=== PATIENT | female | born 1950 | race Caucasian/White ===

== ENCOUNTER → 2016-06-12 | Outpatient (CLI) | payer MEDICARE ==
[~2016-06-12] MED LIST: ADV250INH INH; ALB2.5NEB NEB; AMLO5TAB2 PO; ASPI1TAB PO; ASPI32ECTA PO; CIPR-303 PO; COLA100C PO; DITR5TAB PO; DRIS50002 PO; Duoneb NEB; EXTR500C4 PO; IPRASOL4 INH; ISOVUE-370 76% 100ML VIAL (Q9967) As Ordered ONE; LEVA500T PO; MAXZTA PO; NAPR500T2 PO; PERCOCET PO; POTA75TA PO; PRED10PA2 PO; PROA1AER INH; SIMV20TA2; TRIA37.53 PO; TYLE325T5 PO; ULTR50TA PO; ZITHTAB PO
--- NOTE | 2016-06-12 13:29 | REP ---
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 Comparison is the most recent prior study of 10/04/2015. Scanning is initially performed from the diaphragms to the pubic symphysis without IV contrast. This is followed by biphasic scanning after IV contrast, initially during the portal venous phase of enhancement and later during the delayed equilibrium phase of enhancement from the diaphragms to the pubic symphysis. There is no bowel contrast contrast on any phase of the study. The visualized lung martinez are unremarkable and unchanged. The hepatic parenchyma, pancreas and spleen are homogeneous and unremarkable on all phases of the study and unchanged. The adrenals are unremarkable. The left kidney is unremarkable. The right kidney is surgically absent. There is no mass or adenopathy in the right renal fossa. The abdominal aorta is unremarkable except for calcified atheroma. There is no periaortic adenopathy. There is no pelvic or abdominal adenopathy. Pelvis: The bladder, vaginal cuff and adnexa are unremarkable. There is no pelvic adenopathy or ascites. There is sigmoid colon diverticulosis without diverticulitis. This is unchanged. There is a fat-containing umbilical hernia, unchanged from the prior study. There is a right lateral abdominal wall incisional hernia containing large bowel loops and small bowel loops. This appears to have increased in size from the prior study. There is a midline longitudinal surgical scar anteriorly over the pelvis, not present previously. There is no bowel distension or obstruction.. Impression: The patient's known right lateral abdominal wall incisional hernia has increased in size and contains large bowel loops and small bowel loops. There is a fat-containing umbilical hernia, unchanged. There is a longitudinal surgical scar anteriorly over the midline of the pelvis, not present previously. There is no evidence of tumor recurrence, mass, adenopathy or ascites. There is sigmoid colon d diverticulosis without diverticulitis. Signed by Yonathan Snyder MD 06/12/2016 01:20 P
== END ==
LOC: M RAD 11:06
PROVIDERS: ATTEND Urology
DX: C66.1 Malignant neoplasm of right ureter (principal); K43.2 Incisional hernia without obstruction or gangrene; K57.30 Diverticulosis of large intestine without perforation or abscess without bleeding
CPT/HCPCS: 74178; Q9967

== ENCOUNTER → 2016-06-25 | Outpatient (REF) | payer MEDICARE, OTHER ==
[~2016-06-25] MED LIST changes: -ISOVUE-370 76% 100ML VIAL (Q9967) As Ordered ONE
== END | disposition home or self-care (01) ==
LOC: M SMT 13:26
PROVIDERS: ATTEND Urology
DX: C80.1 Malignant (primary) neoplasm, unspecified (principal)

== ENCOUNTER → 2016-10-15 | Outpatient (REF) | payer OTHER ==
[~2016-10-15] MED LIST changes: -COLA100C PO; +COLA100C3 PO
== END ==
LOC: M SMT 14:01
PROVIDERS: ATTEND Urology
DX: C80.1 Malignant (primary) neoplasm, unspecified (principal)

== ENCOUNTER → 2017-02-06 | Outpatient (CLI) | payer OTHER ==
[~2017-02-06] MED LIST changes: +ASPI325T24 PO; -ASPI32ECTA PO; -COLA100C3 PO; +COLA100C5 PO; +LEVA1TAB2 PO; -LEVA500T PO; -NAPR500T2 PO; +NAPR500T3 PO; -PROA1AER INH; +PROAAER10 INH; -ULTR50TA PO; +ULTR50TA8 PO
[2017-02-06 17:19] LABS: CALCIUM LEVEL 9.1 MG/DL (8.8-10.2); CREATININE FOR GFR 1.02 MG/DL (0.55-1.02); GLOMERULAR FILTRATION RATE 57.2 (>45); POTASSIUM SERUM 4.3 MEQ/L (3.5-5.1)
== END ==
LOC: M SMT 14:05
PROVIDERS: ATTEND Urology
DX: C80.1 Malignant (primary) neoplasm, unspecified (principal)

== ENCOUNTER → 2017-02-20 | Outpatient (CLI) | payer OTHER ==
[~2017-02-20] MED LIST changes: +ISOVUE-370 76% 100ML VIAL (Q9967) As Ordered ONE
--- NOTE | 2017-02-20 12:29 | REP ---
CT ABDOMEN PELVIS WITHOUT AND WITH IV CONTRAST: CT urogram. HISTORY: Urothelial carcinoma. Comparison CT study June 12, 2016. Comparison is also made with CT study from May 26, 2015. CT CONTRAST DOSE: 100 mL of Isovue [address] FINDINGS: The lung bases remain clear. The patient is status post right nephroureterectomy. Right flank abdominal wall hernia transmits unobstructed loops of large and small bowel unchanged from the 06/12/2016 prior study. A ventral hernia transmits abdominal fat as previously noted as well. The liver and spleen remain normal in size homogeneous in texture. A small accessory splenule is seen superiorly. The gallbladder is surgically absent. There is an air and fluid filled laterally projecting descending duodenal diverticulum again seen. No pancreatic lesion is observed. No adrenal mass is seen. There are clips in the nephrectomy bed. No recurrent mass lesion is observed. No adenopathy seen. Normal caliber aorta is noted. The left kidney enhances normally and is morphologically intact. Delayed images show no filling defect in the intrarenal collecting system on the left or mass effect in the left ureter. No bladder mass lesion is seen. There is a small hernia of the suprapubic right anterior abdominal wall containing the anterior edge of the bladder. This is unchanged. There is left colonic diverticulosis without CT evidence of diverticulitis. No evidence of pelvic adenopathy or mass lesion. The appendix is surgically absent. No bony destructive lesion is appreciated. IMPRESSION: Status post right nephro-ureterectomy. No evidence of recurrent mass or adenopathy. Right flank and anterior abdominal wall hernias as noted above unchanged. Vascular calcification left colonic diverticulosis and descending duodenal diverticulum are incidental findings. Signed by Santosh Masterson MD 02/20/2017 05:09 P
--- NOTE | 2017-02-20 12:47 | REP ---
WHOLE BODY RADIONUCLIDE BONE SCAN: HISTORY: Urothelial carcinoma. Status post right nephroureterectomy. TECHNIQUE: 21.7 mCi technetium 99m MDP is injected and standard whole body bone scan imaging is acquired. SCINTIGRAPHIC FINDINGS: The right kidney is surgically absent. There is slight soft tissue uptake in a known right flank postoperative hernia. Normal uptake is seen in the left kidney and in the urinary bladder. There is degenerative uptake in the knees and shoulders bilaterally. There is no evidence to suggest skeletal metastatic disease. Mild arthritic midfoot uptake is seen bilaterally. IMPRESSION: Mild degenerative arthritic uptake pattern. No evidence to suggest skeletal metastatic disease. Signed by Santosh Masterson MD 02/20/2017 05:09 P
== END ==
LOC: M RAD 08:26
PROVIDERS: ATTEND Urology
DX: C80.1 Malignant (primary) neoplasm, unspecified (principal); Z90.5 Acquired absence of kidney
CPT/HCPCS: 74178; 78306; A9503; Q9967

== ENCOUNTER → 2017-06-03 | Outpatient (REF) | payer OTHER | LOC: M SMT 16:41 | DX: C80.1 Malignant (primary) neoplasm, unspecified (principal) | CPT/HCPCS: 88108 ==

== ENCOUNTER → 2017-08-26 | Outpatient (REF) | payer OTHER | LOC: M SMT 12:42 | DX: C80.1 Malignant (primary) neoplasm, unspecified (principal) | CPT/HCPCS: 88108 ==

== ENCOUNTER → 2017-12-30 | Outpatient (REF) | payer OTHER, MEDICARE | LOC: M SMT 17:54 | DX: C80.1 Malignant (primary) neoplasm, unspecified (principal) | CPT/HCPCS: 88108 ==

== ENCOUNTER → 2018-06-01 | Outpatient (REF) | payer MEDICARE ==
[~2018-06-01] MED LIST changes: -AMLO5TAB2 PO; +AMLO5TAB6 PO; -ASPI325T24 PO; +ASPI325T25 PO; -DRIS50002 PO; +DRIS50003 PO; +IPRA0.00 INH; -IPRASOL4 INH; -ISOVUE-370 76% 100ML VIAL (Q9967) As Ordered ONE; +NAPR-885 PO; -NAPR500T3 PO
== END ==
LOC: M SMT 17:08
PROVIDERS: ATTEND Urology
DX: C80.1 Malignant (primary) neoplasm, unspecified (principal)

== ENCOUNTER → 2018-07-02 | Outpatient (CLI) | payer MEDICARE ==
[~2018-07-02] MED LIST changes: +ISOVUE-370 76% 100ML VIAL (Q9967) As Ordered ONE
--- NOTE | 2018-07-03 14:22 | REP ---
Clinical: History of prior right nephrectomy for urinary tract neoplasm. Technique: Axial precontrast, contrast enhanced, and delayed images of the abdomen and pelvis using oral (per protocol) and 100 ml Isovue 370 intravenous contrast material with coronal and sagittal re-formations. Automated dose reduction technique as well as modifications based on patient's size used during image acquisition. Comparison: 02/20/2017. Findings: Lung bases are clear. Visualized heart and pericardium are normal. Liver, spleen, pancreas, bilateral adrenal glands and left kidney/ureter are normal in all phases of enhancement. Evidence of prior cholecystectomy. There is a stable 3.5 cm duodenal hernia along the descending portion of the duodenum lateral to the pancreatic head. The patient is noted to be status post right nephrectomy without evidence for metastatic lesion or recurrence in the right renal fossa. A large postsurgical right lateral ventral hernia is unchanged and contains nonobstructed loops of small and large bowel. There is no evidence for bowel obstruction. Colonic and predominantly sigmoid diverticulosis noted without acute diverticulitis. Pelvis demonstrates stable appearance to the bladder including small right anterior bladder herniation through the inferior margin of the right rectus sheath just above the level of the pubic symphysis. The patient is noted to be status post hysterectomy. No ascites. No intraperitoneal or retroperitoneal adenopathy. No solitary mass lesion or evidence for recurrence/metastatic disease. No free air. Fat containing midline ventral hernia at the level of the pelvis with a defect through the rectus sheath of approximately 16 mm. Atherosclerotic changes of the aorta and vasculature noted without aneurysm or dissection. Osseous structures demonstrate age-related changes without focal osseous abnormality. Impression: 1. No evidence for recurrence or metastatic disease related to right urinary tract neoplasm. Specifically, no ascites, adenopathy, or mass lesion. 2. Stable hernias as described above. 3. Sigmoid diverticulosis without acute diverticulitis. 4. Stable duodenal hernia. Electronically Signed by Hong Anton MD 07/03/2018 02:14 P
== END ==
LOC: M RAD 12:03
PROVIDERS: ATTEND Urology
DX: C66.1 Malignant neoplasm of right ureter (principal); Z90.5 Acquired absence of kidney
CPT/HCPCS: 74178; Q9967

== ENCOUNTER → 2018-08-24 | Outpatient (REF) | payer MEDICARE ==
[~2018-08-24] MED LIST changes: +ASPI-255 PO; -ASPI1TAB PO; -ASPI325T25 PO; +ASPI81TA26 PO; -ISOVUE-370 76% 100ML VIAL (Q9967) As Ordered ONE
== END ==
LOC: M SMT 12:46
PROVIDERS: ATTEND Urology
DX: C67.9 Malignant neoplasm of bladder, unspecified (principal)

== ENCOUNTER → 2019-05-31 | Outpatient (REF) | payer MEDICARE ==
[~2019-05-31] MED LIST changes: -SIMV20TA2; +SIMV20TA22
== END ==
LOC: M SMT 13:07
PROVIDERS: ATTEND Urology
DX: C80.1 Malignant (primary) neoplasm, unspecified (principal)

== ENCOUNTER → 2019-12-03 | Outpatient (REF) | payer MEDICARE ==
[~2019-12-03] MED LIST changes: +AMLO1TAB24 PO; -AMLO5TAB6 PO
== END ==
LOC: M SMT 07:28
PROVIDERS: ATTEND Urology
DX: C67.9 Malignant neoplasm of bladder, unspecified (principal); Z90.5 Acquired absence of kidney

== ENCOUNTER → 2020-07-17 | Outpatient (REF) | payer MEDICARE | LOC: M SMT 14:05 | PROVIDERS: ATTEND Urology | DX: C80.1 Malignant (primary) neoplasm, unspecified (principal) ==

== ENCOUNTER → 2021-08-20 | Outpatient (REF) | payer MEDICARE ==
[~2021-08-20] MED LIST changes: +ALBU8.5H INH; +ATOR1TAB19 PO; +BREO1INH3 INH; +ERGO500029 PO; +HYDR-3363 PO; +HYDR12.55 PO; +INCR1INH INH; +LOSA50TA28 PO; -MAXZTA PO; +MONT10TA97 PO; +TRIA75TA2 PO
== END ==
LOC: M SMT 13:04
PROVIDERS: ATTEND Urology
DX: C80.1 Malignant (primary) neoplasm, unspecified (principal)

== ENCOUNTER → 2021-08-23 | Outpatient (CLI) | payer MEDICARE | LOC: M LABSMTC 10:39 | PROVIDERS: ATTEND Anesthesiology | DX: Z01.812 Encounter for preprocedural laboratory examination (principal); Z20.822 Contact with and (suspected) exposure to COVID-19 ==

== ENCOUNTER 2021-08-28 09:47 | Day surgery (SDC) | payer MEDICARE ==
[~2021-08-28] VITALS: Ht 152.4 cm; Wt 58.1 kg
[~2021-08-28 09:47] MED LIST changes: +NS 1,000 ML IV ONE
[2021-08-28] MEDS ORDERED: fentaNYL 100 MCG/2 ML INJECTION As Ordered ONE (11:30)
[2021-08-28] MEDS ORDERED: propofoL 500 MG/50 ML VIAL As Ordered ONE (11:30)
[2021-08-28] MEDS ORDERED: LIDOCAINE 2% 100MG/5ML SDV (FOR ANES.) As Ordered ONE (11:30)
[2021-08-28 13:15] VITALS: BP 118/77
== END 2021-08-28 13:24 | disposition home or self-care (01) ==
LOC: M OPP 09:47
PROVIDERS: ATTEND Internal Medicine Gastroenterology
DX: D12.0 Benign neoplasm of cecum (principal); K57.30 Diverticulosis of large intestine without perforation or abscess without bleeding; R19.4 Change in bowel habit; R63.4 Abnormal weight loss; K22.89 Other specified disease of esophagus; K29.40 Chronic atrophic gastritis without bleeding; K31.A19 Gastric intestinal metaplasia without dysplasia, unspecified site; R14.0 Abdominal distension (gaseous); Z85.42 Personal history of malignant neoplasm of other parts of uterus; Z85.51 Personal history of malignant neoplasm of bladder; Z80.0 Family history of malignant neoplasm of digestive organs; Z80.52 Family history of malignant neoplasm of bladder; Z79.1 Long term (current) use of non-steroidal anti-inflammatories (NSAID); Z79.51 Long term (current) use of inhaled steroids; Z79.52 Long term (current) use of systemic steroids; Z79.82 Long term (current) use of aspirin; F17.210 Nicotine dependence, cigarettes, uncomplicated; Z88.0 Allergy status to penicillin; Z88.5 Allergy status to narcotic agent; Z88.6 Allergy status to analgesic agent; Z88.8 Allergy status to other drugs, medicaments and biological substances
CPT/HCPCS: 43239; 45385; 88305; J3010

== ENCOUNTER → 2022-02-19 | Outpatient (REF) | payer MEDICARE ==
[~2022-02-19] MED LIST changes: -NS 1,000 ML IV ONE; -TRIA37.53 PO; +TRIA37.577 PO; +TRIA75TA10 PO; -TRIA75TA2 PO
== END ==
LOC: M SMT 15:38
PROVIDERS: ATTEND Urology
DX: C80.1 Malignant (primary) neoplasm, unspecified (principal)

== ENCOUNTER → 2023-04-18 | Outpatient (REF) | payer MEDICARE | LOC: M SMT 15:27 | PROVIDERS: ATTEND Urology | DX: C80.1 Malignant (primary) neoplasm, unspecified (principal) ==

== ENCOUNTER → 2024-04-26 | Outpatient (REF) | payer MEDICARE, MEDICAID ==
[~2024-04-26] MED LIST changes: -ADV250INH INH; +ADVA1AER9 INH
== END ==
LOC: M SMT 15:07
PROVIDERS: ATTEND Urology
DX: C80.1 Malignant (primary) neoplasm, unspecified (principal)

== ENCOUNTER → 2025-04-25 | Outpatient (REF) | payer MEDICARE, MEDICAID | LOC: M SMT 12:41 | PROVIDERS: ATTEND Urology | DX: C80.1 Malignant (primary) neoplasm, unspecified (principal) ==